=== PATIENT | male | born 1985 | race Caucasian/White ===

== ENCOUNTER 2021-02-08 10:31 | Emergency (ER) | payer OTHER ==
--- NOTE | 2021-02-08 10:50 | EDM.PDOC ---
ED HPI GENERAL MEDICAL PROBLEM - General Chief Complaint: Lower Extremity Injury/Pain Stated Complaint: FOOT PAIN Time Seen by Provider: 02/08/21 10:46 Source of Information: Reports: Patient. Denies: Old Records History Limitations: Reports: No Limitations - History of Present Illness INITIAL COMMENTS - FREE TEXT/NARRATIVE: 35 yo male during a weekend drill incurred an injury to his L lateral foot. Now has pain to this area primarily with weight bearing. No tx prior to arrival. No pain to that area before today. Onset: Today, Sudden Onset Date: 02/08/21 Duration: Minutes: Location: Reports: Lower Extremity, Left Quality: Reports: Sharp Severity: Moderate Improves with: Reports: Rest (taking weight off of that foot) Worsens with: Reports: Movement (weight bearing) Context: Reports: Trauma Associated Symptoms: Reports: No Other Symptoms Treatments SEAM STAYER: Reports: Other (see below) (none) Left Foot Pain Score (Numeric/FACES): 7 - Related Data Allergies Allergy/AdvReac Type Severity Reaction Status Date / Time No Known Allergies Allergy Verified 02/08/21 10:46 Review of Systems - Review of Systems Review Of Systems: See Below Constitutional: Reports: No Symptoms Musculoskeletal: Reports: Foot Pain (L lateral foot) Skin: Reports: No Symptoms. Denies: Bruising Neurological: Reports: No Symptoms ED EXAM, GENERAL - Physical Exam Exam: See Below Exam Limited By: No Limitations General Appearance: Alert, WD/WN, No Apparent Distress Extremities: Normal Inspection, Normal Range of Motion, No Pedal Edema, Other (Tender along the lateral edge of the L foot with palpation). No: Non-Tender, Pedal Edema, Kyra's Sign, Limited Range of Motion, Increased Warmth, Redness Neurological: Alert, Oriented, CN II-XII Intact, Normal Cognition, No Motor/Sensory Deficits Psychiatric: Normal Affect, Normal Mood Skin Exam: Warm, Dry, Intact, Normal Color, No Rash. No: Ecchymosis, Erythema, Wound/Incision Course - Vital Signs Last Recorded V/S: Last Vital Signs Temp 36.3 C 02/08/21 10:32 Pulse 87 02/08/21 10:32 Resp 18 02/08/21 10:32 BP 132/90 02/08/21 10:32 Pulse Ox 95 02/08/21 10:32 - Orders/Labs/Meds Orders: Active Orders 24 hr Category Date Time Status Foot Comp Min 3V Lt [CR] Stat Exams 02/08/21 10:44 Taken - Radiology Interpretation Free Text/Narrative:: L foot X-ray-neg Departure - Departure Time of Disposition: 11:40 Disposition: Home, Self-Care 01 Condition: Good Clinical Impression: Left foot pain - Discharge Information *PRESCRIPTION DRUG MONITORING PROGRAM REVIEWED*: Not Applicable *COPY OF PRESCRIPTION DRUG MONITORING REPORT IN PATIENT JOSIAH: Not Applicable Instructions: Crutch Use, Adult, [id number], Foot Pain Referrals: PCP,Not In Area [Primary Care Provider] - Forms: ED Department Discharge Additional Instructions: Crutch walking and no weight bearing. Recheck with a provider of your choice if not resolved in a week. Sepsis Event Note (ED) - Focused Exam Vital Signs: Vital Signs Temp Pulse Resp BP Pulse Ox 02/08/21 10:32 36.3 C 87 18 132/90 95 - My Orders Last 24 Hours: My Active Orders 02/08/21 10:44 Foot Comp Min 3V Lt [CR] Stat - Assessment/Plan Last 24 Hours: My Active Orders 02/08/21 10:44 Foot Comp Min 3V Lt [CR] Stat
--- NOTE | 2021-02-10 10:50 | CR ---
LEFT FOOT INDICATION: Left lateral foot pain after injury today. FINDINGS: Three views of the left foot reveal soft tissue swelling overlying the lateral aspect of the foot at the fifth metatarsal. However, a fracture, dislocation or other significant bone or joint abnormality was not identified. If symptoms persist - if occult fracture site is suspected clinically, reexamination in 10-14 days may be helpful. MTDD
== END 2021-02-08 11:46 | disposition home or self-care (01) ==
LOC: FB.ED 10:31
DX: M79.672 Pain in left foot (principal)
CPT/HCPCS: 73630-LT; 99283-25